=== PATIENT | male | born 1940 | race Caucasian/White ===

== ENCOUNTER 2025-04-19 18:47 | Emergency (ER) | payer OTHER, SELFPAY ==
--- OUTSIDE RECORDS SUMMARY | 2024-06-12 16:30 | XMS_ITS ---
Author Organization [facility] Address [address] [facility] [address] [place], [place] [id number] Care Team Providers Care Qc Chemist Name Role Phone Payam Easton Primary Care Provider UnavailLeno Fermin Unavailable [phone] Migration, Provider Unavailable Unavailable [facility]ISIT [facility] Encounter Medications Medication SIG (Take, Route, Frequency, Duration) Notes Start Date End Date Status Aspirin 81 MG Tablet Chewable 1 tab(s) chewed once a day; Duration: 30 day(s) Active Digoxin 50 MCG/ML (0.05 MG/ML) ELIXIR 2.5 ML ORALLY ONCE A DAY; Duration: 30 DAY(S) *Please review and pick correct strength-formulatio n from [employer] options. If intended option is not shown, discontinue and re-order from Quick Search* Active Calcium 500 + D 500 MG-10 MCG TABLET, CHEWABLE 1 TAB(S) CHEWED 2 TIMES A DAY; Duration: 30 DAY(S) *Please review and pick correct strength-formulatio n from Open [employer] options. If intended option is not shown, discontinue and re-order from Quick Search* Active Atorvastatin Calcium 10 MG Tablet 1 tab(s) orally once a day; Duration: 30 day(s) Active Xarelto 10 MG Tablet 1 tab(s) orally once a day Active Metoprolol Succinate ER 100 MG Tablet Extended Release 24 Hour 1 tab(s) orally once a day; Duration: 30 day(s) Active Encounters Encounter Location Date Provider Diagnosis [facility] [address] [place], [place] [id number] 06/12/2024 Provider Migration Plan Of Treatment No Information Progress Notes * Chace MOCTEZUMADOB:1940 (84 yo M)Acc No.[id number]:06/12/2024 Patient: Chace Smalls Provider: Claudio moulton Migration :1940 A ge:83 Y S ex:Male Date:06/12/2024 Address:[address] [place] [address] Pcp:Payam Easton Subjective: * Chief Complaints: * M ultum To [facility] Conversion Encounter * Medications: T akingAspirin 81 MG Tablet Chewable 1 tab(s) chewed once a day Digoxin 50 MCG/ML (0.05 MG/ML) ELIXIR 2.5 ML ORALLY ONCE A DAY , Notes to Pharmacist: *Please review and pick correct strength-formulation from [employer]an options. If intended option is not shown, discontinue and re-order from Quick Search*Calcium 500 + D 500 MG-10 MCG TABLET, CHEWABLE 1 TAB(S) CHEWED 2 TIMES A DAY , Notes to Pharmacist: *Please review and pick correct strength-formulation from [employer]an options. If intended option is not shown, discontinue and re-order from Quick Search*Atorvastatin Calcium 10 MG Tablet 1 tab(s) orally once a day Metoprolol Succinate ER 100 MG Tablet Extended Release 24 Hour 1 tab(s) orally once a day Xarelto 10 MG Tablet 1 tab(s) orally once a day Taking Aspirin 81 MG Tablet Chewable 1 tab(s) chewed once a day Taking Digoxin 50 MCG/ML (0.05 MG/ML) ELIXIR 2.5 ML ORALLY ONCE A DAY , Notes to Pharmacist: *Please review and pick correct strength-formulation from [employer] options. If intended option is not shown, discontinue and re-order from Quick Search*Taking Calcium 500 + D 500 MG-10 MCG TABLET, CHEWABLE 1 TAB(S) CHEWED 2 TIMES A DAY , Notes to Pharmacist: *Please review and pick correct strength-formulation from Perdoospan options. If intended option is not shown, discontinue and re-order from Quick Search*Taking Atorvastatin Calcium 10 MG Tablet 1 tab(s) orally once a day Taking Metoprolol Succinate ER 100 MG Tablet Extended Release 24 Hour 1 tab(s) orally once a day Taking Xarelto 10 MG Tablet 1 tab(s) orally once a day * Electronic signature of Prov ider Migration on 04/19/2025 at 10:07 PM CDT Sign off status: Pending * Provider: Claudio moulton Migration Date: 1 08/13/2023 Generated for Michelle villela/Kyleigh/Ran on: 10:07 PM CDT
--- NOTE | ~2025-04-19 | CT_ITS ---
CT facial & cervical spine wo HISTORY: fall COMPARISON: None TECHNIQUE: Axial images of the cervical spine and facial bones were obtained. Multiplanar reconstruction in the coronal, sagittal and axial reformats to evaluate for cervical fracture. FINDINGS: The images demonstrate no acute fracture or paravertebral soft tissue swelling. There is no high-grade central or foraminal stenosis. No significant degenerative changes are noted. No facial bone fracture is identified. The sinuses are clear. The nasal septum is midline. No soft tissue swelling or foreign body is noted. On reformatted images, there is no orbital floor fracture. The temporomandibular joint alignment is maintained. The visualized aspect of the upper lungs are clear. IMPRESSION: No acute fracture or subluxation. All CT scans at this facility are performed using low dose modulation techniques as appropriate to perform exam including the following: automated exposure control; adjustment of the mA and/or kV according to patient size (this includes techniques or standardized protocols for targeted exams where does is matched to indication/reason for exam; i.e. extremities or head); use of iterative reconstruction technique). Reviewed, dictated and finalized at location S. IMPRESSION: No acute fracture or subluxation. All CT scans at this facility are performed using low dose modulation techniqu es as appropriate to perform exam including the following: automated exposure c ontrol; adjustment of the mA and/or kV according to patient size (this includes techniques or standardized protocols for targeted exams where does is matched to indication/reason for exam; i.e. extremities or head); use of iterative nemesio nstruction technique).
--- NOTE | ~2025-04-19 | CT_ITS ---
CT brain wo con HISTORY:fall COMPARISON: None. TECHNIQUE: Axial images were obtained of the head without intravenous contrast. FINDINGS: No acute intracranial hemorrhage, mass effect or midline shift. No extra-axial fluid collections. Encephalomalacic changes within the rightfrontal lobe reflective of remote infarct is noted.Visualized paranasal sinuses and mastoid air cells are clear. IMPRESSION: No acute intracranial hemorrhage or extra axial fluid collections. Encephalomalacia changes in the right frontal lobe reflective of remote infarct. All CT scans at this facility are performed using low dose modulation techniques as appropriate to perform exam including the following: automated exposure control; use of iterative reconstruction technique; adjustment of the mA and/or kV according to patient size (this includes techniques or standardized protocols for targeted exams where dose is matched to indication/reason for exam). Reviewed, dictated and finalized at location S. IMPRESSION: No acute intracranial hemorrhage or extra axial fluid collections. Encephalomalacia changes in the right frontal lobe reflective of remote infarct . All CT scans at this facility are performed using low dose modulation techniqu es as appropriate to perform exam including the following: automated exposure c ontrol; use of iterative reconstruction technique; adjustment of the mA and/or kV according to patient size (this includes techniques or standardized protocol s for targeted exams where dose is matched to indication/reason for exam).
[2025-04-19 18:43] VITALS: BP 129/79; PULSE 71; RESP 18; TEMP 36.4; O2SAT 95
--- NOTE | 2025-04-19 19:19 | ED.FALL ---
HPI - Fall General Chief Complaint: Fall Stated Complaint: face lac s/p fall Time Seen by Provider: 04/19/25 19:05 History of Present Illness HPI Narrative: 84-year-old male with a past medical history including prior stroke, atrial fibrillation. He takes Xarelto daily as well as metoprolol and digoxin. Today he was at the [employer] and had a few beers. He was going out to his car with his friend to go home and tripped and fell forward onto his face. Did not lose consciousness but does have a good laceration to his upper lip underneath the nose and under the under side of his lip. Mentating appropriately. No neurological deficits. states he has no residual stroke deficits aside from some slight dizziness occasionally. Answering all questions appropriately. Does not appear intoxicated. Pleasant and cooperative. Denies any other symptoms or pain at this time. Expressing desire to go home as he does not want to be bother with his wound. Related Data Allergies Allergy/AdvReac Type Severity Reaction Status Date / Time No Known Allergies Allergy Verified 04/19/25 20:14 Review of Systems Review of Systems: As reviewed above in HPI Exam Narrative: GENERAL: [Well-appearing, well-nourished, and in no acute distress.] HEAD: [Normocephalic, atraumatic.] EYES: [PERRLA and EOMI.] ENT: Nares clear without any ongoing epistaxis. No rhinorrhea. No posterior pharyngeal erythema or swelling. No bleeding in the posterior oropharynx. The anterior lip above the vermilion border and philtrum has a stellate appearing laceration approximately 2.5 cm x 1 cm. No through and through communication to the inside of the mouth. Bleeding controlled minor trickle. He has a 2 cm laceration on the underside of the bottom lip that is not communicating with any other wound and but is losing blood. NECK: Supple. CHEST: [Clear to auscultation. No respiratory distress.] HEART: [Regular rate and rhythm]. No murmur heard. [Normal peripheral pulses.] ABDOMEN: [Soft, nondistended], [nontender], [No rigidity or guarding] EXTREMITIES: Normal range of motion. [No edema.] SKIN: Warm, dry, no rash. NEURO: [No focal deficits]. Alert and oriented [x3.] PSYCH: [Normal mood and affect.] Course Vital Signs Vital signs: Vital Signs Temperature 36.4 C 04/19/25 18:43 Pulse Rate 71 04/19/25 18:43 Respiratory Rate 18 04/19/25 18:43 Blood Pressure 129/79 04/19/25 18:43 Pulse Oximetry 95 04/19/25 18:43 Oxygen Delivery Room Air 04/19/25 18:43 Temperature 36.4 C 04/19/25 18:43 Pulse Rate 71 04/19/25 18:43 Respiratory Rate 18 04/19/25 18:43 Blood Pressure 129/79 04/19/25 18:43 Pulse Oximetry 95 04/19/25 18:43 Oxygen Delivery Room Air 04/19/25 18:43 Procedures Laceration Laceration 1: Date: 04/19/25 Time: 21:10 Site: lip Size (cm): 2 Description: linear and clean Depth: simple, single layer Local Anesthetic: lidocaine 1% Amount of anesthesia used (mL): 1 Pre-repair: wound explored, irrigated extensively and deep structures intact ====== Skin Level ====== Skin layer closed with: nylon Size (cm): 5-0 Number of sutures: 10 Technique: simple, interrupted ====== Subcutaneous Layer ====== ====== Muscle Layer ====== ====== Tendon Layer ====== Laceration 2: Date: 04/19/25 Time: 21:11 Site: face Size (cm): 2.5 Description: stellate and irregular Depth: simple, single layer Local Anesthetic: lidocaine 1% and with epi Amount of anesthesia used (mL): 3 Pre-repair: wound explored, irrigated extensively and deep structures intact ====== Skin Level ====== Skin layer closed with: nylon Size (cm): 5-0 Number of sutures: 13 Technique: simple, interrupted ====== Subcutaneous Layer ====== ====== Muscle Layer ====== ====== Tendon Layer ====== Dressing: Surgicel dressing applied and then hemostasis achieved and removed with simple gauze applied. MDM - Fall MDM Narrative Medical decision making narrative: 84-year-old male with a past medical history including prior stroke, atrial fibrillation. He takes Xarelto daily as well as metoprolol and digoxin. [place]. He was going out to his car with his friend to go home and tripped and fell forward onto his face. Did not lose consciousness but does have a good laceration to his upper lip underneath the nose and under the under side of his lip. Mentating appropriately. No neurological deficits. states he has no residual stroke deficits aside from some slight dizziness occasionally. Answering all questions appropriately. Does not appear intoxicated. Pleasant and cooperative. Denies any other symptoms or pain at this time. Expressing desire to go home as he does not want to be bother with his wound. Nares clear without any ongoing epistaxis. No rhinorrhea. No posterior pharyngeal erythema or swelling. No bleeding in the posterior oropharynx. The anterior lip above the vermilion border and philtrum has a stellate appearing laceration approximately 2.5 cm x 1 cm. No through and through communication to the inside of the mouth. Bleeding controlled minor trickle. He has a 2 cm laceration on the underside of the bottom lip that is not communicating with any other wound and but is losing blood. No tenderness with palpation, no skull deformity. No new missing dentition or obviously loose teeth. hemodynamically stable and neurologically intact. No red flag signs or symptoms but given that he is on Xarelto with head trauma will obtain facial CT and head CT to rule out significant injury. He was given a tetanus update and let gel applied to the local areas of the wound for analgesia prior to repair at bedside given the location and size of the wound. CT scans were unremarkable. Patient had good analgesia local let gel. Wound repair bedside was complicated by small brisk bleeding requiring TXA and Surgicel with good hemostasis achieved after wound repair. Bleeding controlled at this time. No further hemorrhage while observed in the emergency department. Total of 23 stitches placed. Will have to follow up with ENT outpatient and given resources for follow-up. Medical Records Attestation: I reviewed the patient's medical records. Imaging Data Attestation: I personally reviewed and interpreted this imaging study as follows: My impression: Impressions Head CT 04/19/25 19:41 IMPRESSION: No acute intracranial hemorrhage or extra axial fluid collections. Encephalomalacia changes in the right frontal lobe reflective of remote infarct. All CT scans at this facility are performed using low dose modulation techniques as appropriate to perform exam including the following: automated exposure control; use of iterative reconstruction technique; adjustment of the mA and/or kV according to patient size (this includes techniques or standardized protocols for targeted exams where dose is matched to indication/reason for exam). Head/Cervical Spine/Facial Bones CT 04/19/25 19:47 IMPRESSION: No acute fracture or subluxation. All CT scans at this facility are performed using low dose modulation techniques as appropriate to perform exam including the following: automated exposure control; adjustment of the mA and/or kV according to patient size (this includes techniques or standardized protocols for targeted exams where does is matched to indication/reason for exam; i.e. extremities or head); use of iterative reconstruction technique). Discharge Plan Discharge Clinical Impression: Complex laceration of face, Complicated laceration of lip, Fall, CHI (closed head injury) Patient Disposition: Home Condition: Stable Instructions: Antibiotic Form, Facial Laceration (ED) Additional Instructions: We have repaired your facial and lip lacerations here. Total of 23 stitches placed with 13 in your face and 10 year lip. These need to be removed in about 7 days. Follow-up with the provided manager market research or go to any urgent care/emergency department to get wound check and suture removal at that time. Return with any emergent concerns or bleeding. Given the nature of the complex facial laceration we will send you home with a brief course of antibiotics as well. Patient Language: Wolof Prescriptions: New cephalexin 500 mg capsule 500 mg PO Q12H 5 Days Qty: 10 0RF Follow-up/Referrals: Ramon Garrido MD [Physician, Ear, Nose, Throat] - 1 Week Referral Note: Complex facial and lip laceration Time of Disposition: 21:54
[2025-04-19] MEDS: LIDOCAINE, EPINEPHRINE, TETRACAINE VISCOUS SOLN 3 ML TOPICAL (19:40)
[2025-04-19] MEDS: TETANUS,DIPHTHERIA,AC PERTUSSIS ADULT (0.5 ML) BOOSTRIX IM (20:14)
--- OUTSIDE RECORDS SUMMARY | 2025-04-19 22:07 | XMS_ITS ---
Author Organization [facility] Address [facility] [place] [address] Care Team Providers Care Core Manager Name Role Phone Unknown, Notinfile Primary Care Provider Unavail able Active Problems Problem Noted Date Diagnosed Date Cerebrovascular accident (CVA) 01/12/2022 Cancer 01/12/2022 Overview (01/12/2022): Lymphoma Fall 01/11/2022 Chronic systolic (congestive) heart failure 05/31 Atrial fibrillation (CMS/HCC) 07/09/2012 Overview (10/10/2016): ATRIAL FIBRILLATION Alcoholic intoxication without complication Current Treatment and Therapy Plans No current plan information found. Past Treatment and Therapy Plans No past plan information found. Lifetime Dose Tracking * Chemical Lifetime Dose Automatic Entry Manual Entr y DLP 726 mGycm 726 mGycm 0 mGycm
--- OUTSIDE RECORDS SUMMARY | 2025-04-19 22:07 | XMS_ITS | Encounter Summary ---
Author Organization [facility] Address [address] [place] [address] Care Team Providers Care Brick Offbearer Name Role Phone Payam Easton DO Primary Care Provider [phone] Ac Starkey MD Unavailable [phone] Encounter Details Date Type Department Care Team (Late st Contact Info) Description 04/15/2018 [facility] Outpatient Visit [facility] [address] [place] [address] [place] [address] [place] [address] Social History Tobacco Use Types Packs/Day Years Used Date Smoking Tobacco: Former Smokeless Tobacco: Never Alcohol Use Standard Drinks/Week Comments No 0 (1 standard drink = 0.6 oz pur e alcohol) Sex and Gender Information Value Date Recorded Sex Assigned at Not on file 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 Gender Identity Not on file Sexual Orientation Not on file documented as of this encounter Plan of Treatment Not on file documented as of this encounter Visit Diagnoses Not on filedocumented in this encounter Additional Health Concerns Infection Onset Date Last Indicated Resolved Time COVID-19 Under Investigation 06/22/2020 06/22/2020 06/23/2020 6:16 AM WINE BOTTLE INSPECTOR COVID-19 Under Investigation 03/20/2021 03/20/2021 03/20/2021 11:16 PM CDT COVID-19 Confirmed 03/20/2021 03/20/2021 4:33 AM CDT COVID-19 Under Investigation 03/07/2023 03/07/2023 03/07/2023 10:26 AM CDT documented as of this encounter Care Teams Brick Offbearer Relationship Specialty Start Date End Date Payam Easton DO PCP - General Family Medicine 09/04/13 [place] [address] [place] [address] Pulmonary Disease 07/02/21 documented as of this encounter
--- OUTSIDE RECORDS SUMMARY | 2025-04-19 22:07 | XMS_ITS | Encounter Summary ---
Author Organization [facility] Address [address] [place] [address] Care Team Providers Care Dental Service Chief Name Role Phone Payam Easton DO Primary Care Provider [phone] Ac Starkey MD Unavailable [phone] Encounter Details Date Type Department Care Team (Late st Contact Info) Description 12/23/2024 Lab Requisition [facility] - DermPath Lab [address] [facility] [place] [id number] [place] [id number] [address] Social History Tobacco Use Types Packs/Day Years Used Date Smoking Tobacco: Never Smokeless Tobacco: Never Alcohol Use Standard Drinks/Week Comments Yes 0 (1 standard drink = 0.6 oz pur e alcohol) a beer occasionally AUDIT-C Answer Date Recorded Q1: How often do you have a drink containing alc ohol? Monthly or less 03/07/2023 Q2: How many drinks containi ng alcohol do you have on a typical day when you are drinking? 1 or 2 03/07/2023 Q3: How often do you have si x or more drinks on one occasion? 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 Answer Date of Assessment Author No 02/10/2022 12:05 AM CDT Mike Hernandez RN * Is person blind or have serious difficulty seeing? Answer Date of Assessment Author No 02/10/2022 12:05 AM CDT Mike Hernandez RN * Does person have serious difficulty walking/climbing stairs? Answer Date of Assessment Author No 02/10/2022 12:05 AM ELKINT Mike Hernandez RN * Does person have difficulty dressing/bathing? Answer Date of Assessment Author No 02/10/2022 12:05 AM CDT Mike Hernandez RN * Does person have difficulty doing errands alone? Answer Date of Assessment Author No 02/10/2022 12:05 AM ELKINT Mike Hernandez RN documented as of this encounter Mental Status * Does person have difficulty concentrating/remembering/making decisions? Answer Entry Date Author No 02/10/2022 12:05 AM Mike Meade RN documented in this encounter Plan of Treatment Not on file documented as of this encounter Procedures Procedure Name Priority Date/Time Associated Diagnosis Comments DERMATOPATHOLOGY Routine 12/21/2024 12:0 0 AM CDT documented in this encounter Results * DERMATOPATHOLOGY (12/21/2024 12:00 AM CDT) Case Report Dermatopathology Report Case: [id number] Authorizing Provider: Joey Martinez MD Collected: 12/21/2024 12:00 AM Ordering Location: [facility] - Received: 12/23/2024 09:06 AM DermPath Lab Pathologist: Sana High MD Specimen: Skin, right paietal scalp 5 3:57 PM CDT DERMATOPATHOLOGY LABORATORY Final Diagnosis Specimen A. 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 The specimen consists of a shave biopsy measuring [id number] mm. Jar 0. 3:57 PM CDT DERMATOPATHOLOGY LABORATORY Microscopic Description Specimen A. SKIN, right paietal scalp: The epidermis shows parakeratosis, full thickness disorderly maturation of keratinocytes, mitoses at different levels, and dyskeratotic cells. Adnexal extension of the lesion is seen. There is a column of marked compact hyperkeratosis. 3:57 PM CDT DERMATOPATHOLOGY LABORATORY Disclaimer An external and internal positive and negative controls are appropriate for the histochemical, immunohistochemical and immunofluorescence stain(s) in this case (if any), except where stated explicitly. The performance characteristics of the stain(s) cited in this report were developed and its performance characteristic determined by the Dermatopathology Laboratory at [facility], directed by Dr. Paddy Mayberry. These tests need not be, and therefore are not, approved by the [place] Food and Drug Administration. The tests are used for clinical purposes. Billing Codes Specimen Charges Stain Charges 63914 1 3:57 PM CDT DERMATOPATHOLOGY LABORATORY Embedded Images 3:57 PM CDT DERMATOPATHOLOGY LABORATORY Pathology/Cytolog y TISSUE SPECIMEN FROM SKIN / Unknown 12/21/2024 12/23/2024 9:06 AM CDT Joey Martinez MD LAB - PATHOLOGY/CYTOLOGY O RDERABLES Final Result DERMATOPATHOLOGY LABORATORY [facility] - Department of Dermatology [facility] Medicine [address] [place] [address], [address] [phone] documented in this encounter Visit Diagnoses Not on filedocumented in this encounter Care Teams Dental Service Chief Relationship Specialty Start Date End Date Payam Easton DO PCP - General Family Medicine 09/04/13 [place] [id number] [address] Pulmonary Disease 07/02/21 documented as of this encounter
--- OUTSIDE RECORDS SUMMARY | 2025-04-19 22:07 | XMS_ITS | Clinical Summary ---
Author Organization [facility] Address [address] [place] [phone] Care Team Providers Care Data Storage Specialist Name Role Phone Unknown, Notinfile Primary Care Provider Unavail able Allergies No known active allergies Medications metoprolol XL (TOPROL-XL) 25 mg extended release tablet Take 12.5 mg by mouth daily 02/28/2017 Active digoxin (LANOXIN) 250 mcg (0.25 mg) tablet Take 250 mcg by mouth daily 10/29/2021 Active multivit pxuvowgv-ygjf-EQ -calcium (THERA-M) 9 mg iron-400 mcg tabletIndication s:Vitamin Deficiency Prevention Take 1 tablet by mouth daily 30 tablet 11 01/15/2022 Active folic acid (FOLVITE) 1 mg tabletIndication s:Folate Deficiency Take 1 tablet (1 mg total) by mouth daily for 2 doses 2 tablet 01/15/2022 Active Active Problems Problem Noted Date Diagnosed Date Cerebrovascular accident (CVA) 01/12/2022 Cancer 01/12/2022 Overview (01/12/2022): Lymphoma Fall 01/11/2022 Chronic systolic (congestive) heart failure 05/31 Atrial fibrillation (CMS/HCC) 07/09/2012 Overview (10/10/2016): ATRIAL FIBRILLATION Alcoholic intoxication without complication Surgical History Surgery Date Site/Laterality Comments LUNG SURGERY Right Medical History Medical History Date Comments Cancer (HCC) Hypertension Stroke (HCC) Family History Medical History Relation Name Comments No Known Problems Other 2 no signifi cant family history; Relation Name Status Comments Other 1 Alive Other 2 Social History Tobacco Use Types Packs/Day Years Used Date Smoking Tobacco: Never Alcohol Use Standard Drinks/Week Comments Yes 0 (1 standard drink = 0.6 oz pur e alcohol) Sex and Gender Information Value Date Recorded Sex Assigned at Not on file 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 Gender Identity Not on file Sexual Orientation Not on file Obstetrics History Last Filed Vital Signs Vital Sign Reading Time Taken Comments Blood Pressure 104/62 01/14/2022 11:00 AM CDT Pulse 76 01/14/2022 11:00 AM CDT Temperature 36.6 C (97.8 F) 01/14/2022 11:00 AM CDT Respiratory Rate 18 01/14/2022 11:00 AM CDT Oxygen Saturation 99% 01/14/2022 11:00 AM CDT Inhaled Oxygen Concentration - - Weight 64 kg (141 lb 3.2 oz) 01/12/2022 1:41 PM CDT Height 172.7 cm (5' 7.99) 01/12/2022 1:20 AM CD T Body Mass Index 21.47 01/12/2022 1:20 AM CDT Plan of Treatment Health Maintenance Due Date Last Done Comments Depression Screening 1940 DTaP/Tdap/Td Vaccine (1 - Tdap) 12/12/1951 Hepatitis B Screening 1958 Pneumococcal vaccine 65+ (1 of 2 - PCV) 12/12/1959 Zoster Vaccine (1 of 2) 1990 Well Visit 65+ 2005 Fall Risk Assessment 01/14/2023 01/14/2022 Covid-19 Vaccine (3 - season) 2025, 07/05/2021 Influenza Vaccine (#1) 2025 Insurance [facility] Advance Directives For more information, please contact: [phone] * Full Code (Latest Code Status on File) Date Activated Date Inactivated Comments 01/12/2022 1:07 AM 01/14/2022 9:38 PM Care Teams Data Storage Specialist Relationship Specialty Start Date End Date Unknown, Notinfile PCP - General 01/11/22
--- OUTSIDE RECORDS SUMMARY | 2025-04-19 22:07 | XMS_ITS | Encounter Summary ---
Author Organization [facility] Address [address] [facility] [place] [address] Care Team Providers Care Medical Doctor Md/Medical Director Name Role Phone Payam Easton DO Primary Care Provider [phone] Ac Stakrey MD Unavailable [phone] Encounter Details Date Type Department Care Team (Late st Contact Info) Description 03/21/2021 Telephone [facility] MED [address] [place] [address] Nicanor Davis, BODY HANGER-MARKET MAKER [address] [place] [address] Social History Tobacco Use Types Packs/Day Years Used Date Smoking Tobacco: Never Smokeless Tobacco: Never Alcohol Use Standard Drinks/Week Comments Yes 0 (1 standard drink = 0.6 oz pur e alcohol) Sex and Gender Information Value Date Recorded Sex Assigned at Not on file Legal Sex Male 8:14 PM BINGO CLERK Gender Identity Not on file Sexual Orientation Not on file documented as of this encounter Functional Status * Is person deaf or have serious hearing difficulty? Answer Date of Assessment Author No 08/05/2018 12:45 PM Syeda Hobbs RN * Is person blind or have serious difficulty seeing? Answer Date of Assessment Author No 08/05/2018 12:45 PM Syeda Hobbs RN * Does person have serious difficulty walking/climbing stairs? Answer Date of Assessment Author No 08/05/2018 12:45 PM Syeda Hobbs RN * Does person have difficulty dressing/bathing? Answer Date of Assessment Author No 08/05/2018 12:45 PM Syeda Hobbs RN * Does person have difficulty doing errands alone? Answer Date of Assessment Author No 08/05/2018 12:45 PM Syeda Hobbs RN documented as of this encounter Mental Status * Does person have difficulty concentrating/remembering/making decisions? Answer Entry Date Author No 08/05/2018 12:45 PM Syeda Hobbs RN documented in this encounter Miscellaneous Notes * Telephone Encounter - Nicanor Davis APRN-CNP - 03/21/2021 7:09 AM CDT Called Mr. Moctezuma to update him to his positive COVID-19 PCR. Pt instructed to isolate per CDC guidelines. Pt also instructed on what signs and symptoms require medical attention. Pt was able to teach back instructions. documented in this encounter Plan of Treatment Not on file documented as of this encounter Visit Diagnoses Not on filedocumented in this encounter Additional Health Concerns Infection Onset Date Last Indicated Resolved Time COVID-19 Confirmed 03/20/2021 03/20/2021 4:33 AM CDT COVID-19 Under Investigation 03/07/2023 03/07/2023 03/07/2023 10:26 AM CDT documented as of this encounter Care Teams Medical Doctor Md/Medical Director Relationship Specialty Start Date End Date Payam Easton DO PCP - General Family Medicine 09/04/13 [place] [address] [place] [address] Pulmonary Disease 07/02/21 documented as of this encounter
--- OUTSIDE RECORDS SUMMARY | 2025-04-19 22:07 | XMS_ITS | Clinical Summary ---
Author Organization [facility] Address [address] [place] [address] Phone Care Team Providers Care Meat Stock Clerk Name Role Phone EloamyPayam Primary Care Provider [phone] Allergies No known active allergies Medications rivaroxaban (Xarelto) 20 mg Tablet Take 20 mg by mouth daily. Active digoxin (LANOXIN) 125 mcg (0.125 mg) tablet Take 0.125 mg by mouth daily. Active aspirin (GEOFFREY CHEWABLE) 81 mg Tablet, Chewable Take 1 Tablet (81 mg) by mouth daily. 30 Tablet 03/15/2021 Active atorvastatin (LIPITOR) 20 mg tablet Take 1 Tablet (20 mg) by mouth daily at bedtime. 30 Tablet 03/14/2021 Active metoprolol succinate (TOPROL XL) 25 mg Extended Release 24 hour tablet Take 1 Tablet (25 mg) by mouth daily. 1 Tablet 03/14/2021 Active Active Problems Problem Noted Date Diagnosed Date Stroke-like symptoms 03/12/2021 Chronic systolic (congestive) heart failure 05/31 Atrial fibrillation Cancer Overview (03/12/2021): Lymphoma Cerebrovascular accident (CVA) Encounter for blood typing Abnormal finding on MRI of brain Resolved Problems Problem Noted Date Diagnosed Date Resolved Date History of atrial fibrillation 01/30/2016 03/12/2021 Encounters Date Type Department Care Team Description 04/12/2025 External Device Data ST[facility] ABSTRACTION Provider, Abstract 03/15/2025 External Device Data ST[facility] ABSTRACTION Provider, Abstract from Last 3 Months Family History Medical History Relation Name Comments Healthy Father Heart Disease Mother Relation Name Status Comments Father Mother Social History Tobacco Use Types Packs/Day Years Used Date Smoking Tobacco: Never Smokeless Tobacco: Never Alcohol Use Standard Drinks/Week Comments Not Currently 0 (1 standard drink = 0.6 oz pur e alcohol) Sex and Gender Information Value Date Recorded Sex Assigned at Not on file Legal Sex Male 1:21 PM CDT Gender Identity Not on file Sexual Orientation Not on file Last Filed Vital Signs Vital Sign Reading Time Taken Comments Blood Pressure 135/92 03/14/2021 8:22 AM CDT Pulse 102 03/14/2021 4:00 AM CDT Temperature 36.5 C (97.7 F) 03/14/2021 8:22 AM CDT Respiratory Rate 16 03/14/2021 8:22 AM CDT Oxygen Saturation 96% 03/14/2021 8:22 AM CDT Inhaled Oxygen Concentration - - Weight 70.8 kg (156 lb) 05/22/2021 9:32 AM CORPORATE GENERAL MANAGER Height 172.7 cm (5' 8) 05/22/2021 9:32 AM CORPORATE GENERAL MANAGER Body Mass Index 23.72 05/22/2021 9:32 AM CORPORATE GENERAL MANAGER Plan of Treatment Health Maintenance Due Date Last Done Comments DTAP/TDAP/TD VACCINES (1 - Tdap) 12/12/1959 PNEUMOCOCCAL VACCINE 50+ YEA RS (1 of 2 - PCV) 12/12/1959 ZOSTER VACCINE (1 of 2) 1990 RSV VACCINE (60+ or ) (1 - 1-dose 75+ series) 12/12/2015 INFLUENZA VACCINE (#1) 2025 COVID-19 Vaccine (2024- season) 2025 04/15/2022, 09/18/2021, 07/05/2021 Insurance [facility] MCR Advance Directives For more information, please contact: [phone] * Full Code (Latest Code Status on File) Date Activated Date Inactivated Comments 03/12/2021 3:25 PM 03/14/2021 1:44 PM * Default Full Code - Needs Discussion Date Activated Date Inactivated Comments 03/12/2021 3:00 PM 03/12/2021 3:25 PM Care Teams Meat Stock Clerk Relationship Specialty Start Date End Date Payam Easton DO PCP - General Family Practice 03/12/21
--- OUTSIDE RECORDS SUMMARY | 2025-04-19 22:07 | XMS_ITS | Clinical Summary ---
Author Organization [facility] Address [address] [facility] [place] [address] Care Team Providers Care Infant And Toddler Teacher Name Role Phone Payam Easton DO Primary Care Provider [phone] Ac Starkey MD Unavailable [phone] Source Comments [facility],non-owned Affiliates and Associated Physician Practices is amultiple site organization consisting of ambulatory clinics and hospital sitesin [place], [place], [place] and [place]. This disclosure is being madepursuant to the Care Everywhere program and may not contain all information available regarding this patient. Last updated 18.[facility] Allergies No known active allergies Medications * Be aware that medications may not be up to date on this document. Alwaysverify current medications with the patient. rivaroxaban (XARELTO) 20 MG tablet Take 1 (one) tablet by mouth daily with food Active aspirin (ASPIRIN) 81 MG chew tablet Take 1 (one) tablet by mouth once daily Active digoxin (LANOXIN) 0.25 MG tablet 10/29/2021 Active atorvastatin (Lipitor) 40 MG tablet Take 1 (one) tablet by mouth at bedtime 90 tablet 3 02/21/2022 Active Multiple Vitamins-Minera ls (ZINC PO) Active VITAMIN D PO Active VITAMIN K PO Active MAGNESIUM PO Active Ascorbic Acid (VITAMIN C PO) Activ e CBD product (various) Cream Active metoprolol tartrate IR (Lopressor) 25 MG tablet Take 12.5 mg by mouth once daily 04/06/2022 Active Active Problems Problem Noted Date Diagnosed Date Slurred speech 03/07/2023 Gait disturbance 03/07/2023 Aphasia 02/09/2022 Cerebrovascular accident (CVA) 02/09/2022 Pleural effusion 07/24/2021 Fall 03/20/2021 Incarcerated incisional hernia 08/04/2018 Incisional hernia, without obstruction or gangre ne 04/15/2018 Immunizations Immunization Administration Dates Next Due COVID PFIZER BIVALENT 12Y+ 30mcg/0.3ML Covid Pfizer primary Monovalent 12+ yr 0.3ml Covid Pfizer primary monovalent 12+ yr 0.3mL Pur ple cap 07/05/2021 Family History Medical History Relation Name Comments Other - Cardiac Mother Relation Name Status Comments Father Mother Social History Tobacco Use Types Packs/Day Years Used Date Smoking Tobacco: Never Smokeless Tobacco: Never Tobacco Cessation:Counseling Given: No Alcohol Use Standard Drinks/Week Comments Yes 0 [...] on file Legal Sex Male 8:14 PM DIGITAL COMPOSER Gender Identity Not on file Sexual Orientation Not on file Last Filed Vital Signs Vital Sign Reading Time Taken Comments Blood Pressure 108/56 03/08/2023 8:34 AM CDT Pulse 73 03/08/2023 8:34 AM CDT Temperature 36.4 C (97.5 F) 03/08/2023 8:34 AM CDT Respiratory Rate 16 03/08/2023 8:34 AM CDT Oxygen Saturation 97% 03/08/2023 8:34 AM CDT Inhaled Oxygen Concentration 21% 06/2021 11:15 AM DIGITAL COMPOSER Weight 68.9 kg (151 lb 14.4 oz) 023 12:06 PM CDT Height 172.7 cm (5' 8) 03/07/2023 12:0 6 PM CDT Body Mass Index 23.1 03/07/2023 12:06 PM CDT Plan of Treatment Health Maintenance Due Date Last Done Comments MEDICARE AWV 12 MONTHS 1940 DTAP/TDAP/TD VACCINES (1 - Tdap) 12/12/1959 PNEUMOCOCCAL VACCINE 50+ (1 of 2 - PCV) 12/12/1959 ZOSTER VACCINE (1 of 2) 1990 Respiratory Syncytial Virus (RSV) Vaccine Pt: or over 60 yrs (1 - 1-dose 75+ series) 12/12/2015 DEPRESSION SCREENING 06/30/2024 COVID-19 VACCINE (4 - 2024-2 6 season) 2025 04/15/2022, 09/18/2021, 07/05/2021 INFLUENZA VACCINE (#1) 2025 HEPATITIS B VACCINE Aged Out No longe r eligible based on patient's age to complete this topic HIB VACCINE Aged Out No longer eligi ble based on patient's age to complete this topic HPV VACCINE Aged Out No longer eligi ble based on patient's age to complete this topic MENINGOCOCCAL (Group B) VACCINE SHARED DECISION-MAKING Aged Out No longer eligible based on patient's age to complete this topic MENINGOCOCCAL GROUPS A/C/Y/W VACCINE Aged Out No longer eligible b ased on patient's age to complete this topic Medical Devices Implanted Type Area Post Hole Digging Machine Operator Device Identifier Shelf Expiration Date Model / Serial / Lot Mesh Srg Phasix Sepra 8x6in Rect Mfl Implanted:Qty: 1 on 08/04/2018 by Kimberly Dueñas DO at [facility] N/A: Abdomen [employer] 07/27/2019 [id number] / / [id number] Insurance [facility] MEDICARE Advance Directives * Full Code (Latest Code Status on File) Date Activated Date Inactivated Comments 03/07/2023 12:06 PM 03/08/2023 12:56 PM * Full Code Date Activated Date Inactivated Comments 03/07/2023 11:29 AM 03/07/2023 12:06 PM * Full Code Date Activated Date Inactivated Comments 02/09/2022 11:40 PM 02/11/2022 4:07 PM * Full Code Date Activated Date Inactivated Comments 07/24/2021 7:48 PM 07/31/2021 7:46 PM * Full Code Date Activated Date Inactivated Comments 03/20/2021 4:27 AM 03/20/2021 7:07 PM Care Teams Infant And Toddler Teacher Relationship Specialty Start Date End Date Payam Easton DO PCP - General Family Medicine 09/04/13 [place] [address] [address] Pulmonary Disease 07/02/21
--- OUTSIDE RECORDS SUMMARY | 2025-04-19 22:07 | XMS_ITS | Patient Health Record ---
Author Organization [facility] Address [address] [place], [place] [address] Care Team Providers Care Cane Flume Watchman Name Role Phone Payam Easton Primary Care Provider Leno [place] Unavailable [phone] Migration, Provider Unavailable Unavailable Allergies No Known Allergies Reason For Referral No Information Medications Medication SIG (Take, Route, Frequency, Duration) Notes Start Date End Date Status Aspirin 81 MG Tablet Chewable 1 tab(s) chewed once a day; Duration: 30 day(s) Active Digoxin 50 MCG/ML (0.05 MG/ML) ELIXIR 2.5 ML ORALLY ONCE A DAY; Duration: 30 DAY(S) *Please review and pick correct strength-formulatio n from [employer] options. If intended option is not shown, discontinue and re-order from Quick Search* Active Calcium 500 + D 500 MG-10 MCG TABLET, CHEWABLE 1 TAB(S) CHEWED 2 TIMES A DAY; Duration: 30 DAY(S) *Please review and pick correct strength-formulatio n from [employer] options. If intended option is not shown, discontinue and re-order from Quick Search* Active Atorvastatin Calcium 10 MG Tablet 1 tab(s) orally once a day; Duration: 30 day(s) Active Metoprolol Succinate ER 100 MG Tablet Extended Release 24 Hour 1 tab(s) orally once a day; Duration: 30 day(s) Active Xarelto 10 MG Tablet 1 tab(s) orally once a day Active Social History Social History Additional Details Category Social Info Options Details Social History Occupation No Recreational drug use No Smokeless Tobacco No Passive smoke exp: No Problems Problem Type SNOMED Code ICD Code Onset Dates Problem Status W/U Status Risk Notes Problem History of cerebrovascular accident without residual deficits (108443312) Personal history of transient ischemic attack (TIA), and cerebral infarction without residual deficits (Z86.73) Active confirmed Problem Sensorineural hearing loss of bilateral ears (disorder) (218318882) Sensorineural hearing loss, bilateral (H90.3) Active confirmed Encounters Encounter Location Date Provider Diagnosis [facility] [address] [place], [place] [id number] 06/12/2024 Provider Migration Plan Of Treatment No Information Insurance Providers Payer Name Payer Address Payer Phone Subscriber Number Group Number Insured Name Patient Relationship to Insured Coverage Start Date Coverage End Date [facility] [address] [place] [address] [id number] Chace Moctezuma Self - patient is the insured Medical (General) History Medical History History ICD Code Pertinent Medical History: None, Surgical History Surgery Date(Month/Year) appendix CA surgeries
--- OUTSIDE RECORDS SUMMARY | 2025-04-19 22:07 | XMS_ITS | Encounter Summary ---
Author Organization [facility] Address [address] [facility] [place] [address] Care Team Providers Care Field Crop Harvest Worker Name Role Phone Payam Easton DO Primary Care Provider Ac Starkey MD Unavailable Encounter Details Date Type Department Care Team (Late st Contact Info) Description 06/22/2020 Lab Requisition [facility] MICROBIOLOGY [address] [place] [address] Sana Perez MD [address] [place] [address] Social History Tobacco Use Types Packs/Day Years Used Date Smoking Tobacco: Never Assessed Sex and Gender Information Value Date Recorded Sex Assigned at Not on file Legal Sex Male 8:14 PM SEAT COVER MAKER Gender Identity Not on file Sexual Orientation [...] of Assessment Author No 08/05/2018 12:45 PM Seyda Hobbs RN * Does person have difficulty doing errands alone? Answer Date of Assessment Author No 08/05/2018 12:45 PM SEAT COVER MAKER Syeda Tracy RN documented as of this encounter Mental Status * Does person have difficulty concentrating/remembering/making decisions? Answer Entry Date Author No 08/05/2018 12:45 PM SEAT COVER MAKER Syeda Tracy RN documented in this encounter Plan of Treatment Not on file documented as of this encounter Procedures Procedure Name Priority Date/Time Associated Diagnosis Comments SARS-COV-2 (COVID-19) IN HOUSE Routine 06/22/2020 11:10 AM SEAT COVER MAKER documented in this encounter Results * SARS-COV-2 (COVID-19) IN HOUSE (06/22/2020 11:10 AM SEAT COVER MAKER) COVID-19 PCR Not detected Not detected 06/23/2020 6:16 [address] [facility] MICROBIOLOGY Microbiology SPECIMEN FROM NASOPHARYNGEAL STRUCTURE / Unknown Collection / Unknown 06/22/2020 11:10 AM SEAT COVER MAKER 06/22/2020 6:05 PM SEAT COVER MAKER Narrative [facility] MICROBIOLOGY - 06/23/2020 6:16 AM SEAT COVER MAKER This Real Time RT-PCR assay was developed and its performance characteristics determined by [facility]. This test has been authorized by the Food and Drug administration (FDA)under an Emergency Use Authorization (EUA). This test has been validated in accordance with the FDA's guidance document Policy for Diagnostic Testing in Laboratories Certified to perform High Complexity Testing under CLIA prior to Emergency Use Authorization for Coronavirus Disease-2019 during the Public Health Emergency issued on August 28, 2019. FDA independent review of this validation is pending. This test is only authorized for the duration of time the declaration that circumstances exist justifying the authorization of emergency use of in vitro diagnostic tests for detection of SARS-CoV-2 virus and/or diagnosis of COVID-19 infection under section 564(b)(1) of the Act, 21 U.S.C 360bbb-3 (b)(1), unless the authorization is terminated or revoked sooner. Fact Sheets for this EUA assay are available upon request. Sana Perez MD LAB - MICROBIOLOGY ORDERABLES Final Result [facility] [address] [place] [address], [facility] [phone] documented in this encounter Visit Diagnoses Not on filedocumented in this encounter Additional Health Concerns Infection Onset Date Last Indicated Resolved Time COVID-19 Under Investigation 06/22/2020 06/22/2020 06/23/2020 6:16 AM SEAT COVER MAKER COVID-19 Under Investigation 03/20/2021 03/20/2021 03/20/2021 11:16 PM CDT COVID-19 Confirmed 03/20/2021 03/20/2021 4:33 AM CDT COVID-19 Under Investigation 03/07/2023 03/07/2023 03/07/2023 10:26 AM CDT documented as of this encounter Care Teams Field Crop Harvest Worker Relationship Specialty Start Date End Date Payam Easton DO PCP - General Family Medicine 09/04/13 [place] [address] [address] Pulmonary Disease 07/02/21 documented as of this encounter
--- OUTSIDE RECORDS SUMMARY | 2025-04-19 22:07 | XMS_ITS | Encounter Summary ---
Author Organization [facility] Address [address] [facility] [place] [address] Care Team Providers Care Memory Care Program Resident Name Role Phone Payam Easton DO Primary Care Provider [phone] Ac Starkey MD Unavailable [phone] Encounter Details Date Type Department Care Team (Late st Contact Info) Description 04/21/2018 [facility] Outpatient Visit [facility] [address] [place] [address] [place]ly [place] [address] [place] [address] Social History Tobacco Use Types Packs/Day Years Used Date Smoking Tobacco: Former Smokeless Tobacco: Never Alcohol Use Standard Drinks/Week Comments No 0 (1 standard drink = 0.6 oz pur e alcohol) Sex and Gender Information Value Date Recorded Sex Assigned at Not on file Legal Sex Male 8:14 PM FURNACE WORKER Gender Identity Not on file Sexual Orientation Not on file documented as of this encounter Plan of Treatment Not on file documented as of this encounter Visit Diagnoses Not on filedocumented in this encounter Additional Health Concerns Infection Onset Date Last Indicated Resolved Time COVID-19 Under Investigation 06/22/2020 06/22/2020 06/23/2020 6:16 AM FURNACE WORKER COVID-19 Under Investigation 03/20/2021 03/20/2021 03/20/2021 11:16 PM CDT COVID-19 Confirmed 03/20/2021 03/20/2021 4:33 AM CDT COVID-19 Under Investigation 03/07/2023 03/07/2023 03/07/2023 10:26 AM CDT documented as of this encounter Care Teams Memory Care Program Resident Relationship Specialty Start Date End Date Payam Easotn DO PCP - General Family Medicine 09/04/13 [place] [address] [place] [address] Pulmonary Disease 07/02/21 documented as of this encounter
== END 2025-04-19 22:28 | disposition home or self-care (01) ==
LOC: ANHED 22:05
PROVIDERS: Emergency Provider Student in an Organized Health Care Education/Training Program
DX: S01.511A Laceration without foreign body of lip, initial encounter (principal); S01.81XA Laceration without foreign body of other part of head, initial encounter; Z23 Encounter for immunization; I48.91 Unspecified atrial fibrillation; Z86.73 Personal history of transient ischemic attack (TIA), and cerebral infarction without residual deficits; Z79.01 Long term (current) use of anticoagulants; Z79.899 Other long term (current) drug therapy; W01.0XXA Fall on same level from slipping, tripping and stumbling without subsequent striking against object, initial encounter
CPT/HCPCS: 12013; 70450; 70486; 72125; 90471; 90715; 99284; J2004; J3290